=== PATIENT | male | born 1965 | race Caucasian/White ===

== ENCOUNTER 2017-06-05 13:28 | Inpatient (IN) | payer MEDICARE, OTHER ==
[~2017-06-05] VITALS: Ht 162.6 cm; Wt 76.7 kg
[2017-06-05] MEDS ORDERED: IV NORMAL SALINE 1,000ML 1,000 ML IV SCH (13:56)
[2017-06-05 14:12] LABS: BASO # 0.1 x10^3/uL (0.0-0.2); BASO % 1 % (0-3); EOS % 0 % (0-3); HEMOGLOBIN 16.9 g/dL (13.0-17.5); LYMPH # 0.8 x10^3/uL (1.0-4.8); LYMPH % 8 % (24-48); MEAN CORPUSCULAR HEMOGLOBIN 33 pg (25-35); MEAN CORPUSCULAR HGB CONC 34 g/dL (31-37); MEAN CORPUSCULAR VOLUME 97 fL (79-100); MONO # 0.8 x10^3/uL (0.0-1.1); MONO % 8 % (0-9); NEUT # 8.4 x10^3uL (1.8-7.7); NEUT % 83 % (31-73); PLATELET COUNT 206 x10^3/uL (140-400); RED BLOOD COUNT 5.13 x10^6/uL (4.30-5.70); RED CELL DISTRIBUTION WIDTH 14.4 % (11.5-14.5); WHITE BLOOD COUNT 10.1 x10^3/uL (4.0-11.0)
[2017-06-05] MEDS ORDERED: IV NORMAL SALINE 50ML 50 ML ONE (14:12)
[2017-06-05] MEDS ORDERED: cefTRIAXone SODIUM 1 GM VIAL IV ONE (14:13)
[2017-06-05] MEDS ORDERED: ACETAMINOPHEN 500 MG TABLET PO ONE (14:15)
[2017-06-05] MEDS ORDERED: ONDANSETRON ODT 4 MG TAB.RAPDIS PO ONE (14:15)
[2017-06-05 14:34] LABS: BILIRUBIN,URINE NEG (NEG); CLARITY,URINE HAZY; COLOR,URINE AMBER; GLUCOSE,URINE NEG (NEG); NITRITE,URINE NEG (NEG); RBC,URINE RARE /HPF (0-2); UROBILINOGEN,URINE 1 mg/dL (0.2 mg/dL)
[2017-06-05 14:35] LABS: AMORPHOUS SEDIMENT,UR PRESENT /HPF; BACTERIA,URINE FEW /HPF (0-FEW); HYALINE CASTS, URINE FEW /HPF; SQUAMOUS EPITHELIAL CELL,UR OCC /LPF; WBC,URINE OCC /HPF (0-4)
[2017-06-05 14:43] LABS: BARBITURATES NEG (NEG); BENZODIAZEPINES NEG (NEG); CANNABINOIDS NEG (NEG); COCAINE POS (NEG); METHADONE NEG (NEG); OPIATES NEG (NEG); PHENCYCLIDINE NEG (NEG)
[2017-06-05 14:44] LABS: AMPHETAMINE/METHAMPHETAMINE NEG (NEG)
[2017-06-05 14:44] LABS: ALBUMIN 4.2 g/dL (3.4-5.0); CALCIUM 9.5 mg/dL (8.5-10.1); CREATININE 1.4 mg/dL (0.7-1.3); DIRECT BILIRUBIN 0.5 mg/dL (0.0-0.2); GFR 53.2; POTASSIUM 3.3 mmol/L (3.5-5.1); TOTAL BILIRUBIN 1.4 mg/dL (0.2-1.0); TOTAL PROTEIN 8.5 g/dL (6.4-8.2)
--- NOTE | 2017-06-05 14:51 | EKG ---
[address] [address] Test Date: 2017-06-05 Test Time: 14:33:48 Pat Name: BHUMIKA MENDOZA Department: Room: Gender: M Ramp Supervisor: FARNAZ : 1965 Requested By: MARIELLE DEAN Order Number: [id number] Reading MD: Pete Aguilar Measurements Intervals [place] Rate: 105 P: 82 ME: 160 QRS: 35 QRSD: 90 T: 35 QT: 326 QTc: 435 Interpretive Statements SINUS TACHYCARDIA VENTRICULAR PREMATURE COMPLEX(ES) Electronically Signed On 06-08-2017 8:22:14 CDT by Pete Aguilar
--- NOTE | 2017-06-05 15:06 | RAD ---
CT HEAD WITHOUT CONTRAST History: seizure, fall, head injury . Comparison: None. Procedure: Axial images are obtained of the head from the skull base through the vertex without IV contrast. 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 Vidal-white matter differentiation is otherwise preserved. The ventricles and sulci are normal for the patient's age.. No mass-effect, midline shift, hemorrhage or obvious acute infarction is identified. Basilar cisterns are patent. Bone windows demonstrate no significant calvarial abnormality.The visualized paranasal sinuses appear clear. Mastoid air cells are well aerated. IMPRESSION: 1. No acute intracranial abnormality. 2. 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 PQRS Compliance Statement: One or more of the following individualized dose reduction techniques were utilized for this examination: 1. Automated exposure control 2. Adjustment of the mA and/or kV according to patient size 3. Use of iterative reconstruction technique
--- NOTE | 2017-06-05 15:20 | RAD ---
CT MAXILLOFACIAL WITHOUT CONTRAST History: seizure, fall, head injury Technique: Axial helical images of the face were obtained without contrast. Axial and coronal reconstruction was performed. Findings: Minimally depressed fracture of the left anterior maxillary sinus. Trace bilateral maxillary sinus mucosal thickening. The paranasal sinuses are otherwise clear. The orbits are normal. The globes are intact. The nasal septum is mostly midline. The ostiomeatal complexes are narrow but patent. Right maxillary molar periapical lucencies. Multiple dental caries. IMPRESSION: 1. Minimally depressed fracture of the left anterior maxillary sinus. Given the presence of left frontal lobe encephalomalacia, findings could relate to remote injury. Recommend clinical correlation for patient's history and point tenderness in this region. 2. Right maxillary molar periapical lucencies. Multiple dental caries. Critical Findings: These findings were discussed with Dr. Isidro at 2:15 PM on 06/05/2017. Dr. Isidro advised that patient does have point tenderness in this region. PQRS Compliance Statement: One or more of the following individualized dose reduction techniques were utilized for this examination: 1. Automated exposure control 2. Adjustment of the mA and/or kV according to patient size 3. Use of iterative reconstruction technique
--- NOTE | 2017-06-05 16:06 | PHYS DOC ---
General Chief Complaint: SEIZURE Stated Complaint: SEIZURE Time Seen by MD: 13:56 Source: patient Exam Limitations: other (patient deaf and mute, noncooperative ) Problems: History of Present Illness Initial Comments Patient is a 51-year-old male who was reportedly deaf brought to the ED by EMS with report of seizure and head injury. EMS reports that the patient who is homeless was called in as having had a seizure by an acquaintance. EMS reports that on arrival the patient was tachycardic but otherwise vital signs were stable. The patient was able to follow visual commands and they did not feel that he appeared to be postictal. They reported some left facial swelling and abrasions otherwise no trauma noted but due to questionable history a c-collar was placed in the field. On arrival a white powdery substance was noted that the patient's right nare. A test fixture designer was implemented via face time technology to obtain a history from the patient as no prior records were available. Upon questioning the patient answered affirmatively that he had had a seizure. Through the interview it became clear that the patient was alert and answering questions appropriately according to the group controller. The patient denies any global headache, no chest pain or trouble breathing no nausea or new focal neuro deficit. The patient denied any medical history aside from seizure disorder and admitted to marijuana and frequent heavy alcohol abuse. He denied any history of alcohol withdrawal or seizure related to alcohol withdrawal. He denied any neck pain ear or nose discharge and via direct questioning denied any history of assault. He specifically didn't deny through questioning history of cocaine, methamphetamine, heroin, or crack cocaine abuse. Denies history of IV drug use, immunocompromise status, or chronic hepatitis/HIV. When asked whether he took any medications for seizures or any medications for anticoagulation the patient appeared to become evasive stating "I don't know." When asked if he took any chronic medications, where he got them filled, where he lived, or if he had been seen by a local doctors for hospitals he continued to look down and avoided eye contact and via sign language state "I don't know. " Patient was able to ask via group controller for pain medications repeatedly, denying headache but stating that his left cheek was painful and he wanted us to know he had bitten his tongue. Evaluation of his tongue did show small bite heard but no open laceration or bleeding. I asked the patient is having other questions or if he had anything wanted to tell me, his only specific request was for analgesia. I advised him that we would treat his pain as best we could while keeping him awake until we found out more information about him. Due to lack of history and apparent cooperation and full labs and imaging workup was initiated. While the workup was pending ED staff called local hospitals to see if they had taking care of the patient in the past. After several facilities denies prior knowledge of the patient [facility] advised that the patient was a frequent ED patient at their facility for pain complaints and alcohol intoxication. They relate that the patient had extensive history of drug abuse specifically cocaine. They advised that the patient had an apparent fall from standing in 2015 with subarachnoid hemorrhage and has had seizure disorder resulted from the head trauma since that time. They relay that the patient takes no chronic medications, specifically no antiepileptic medications or anticoagulation therapy. Full patient medical records were requested both verbally and officially via our ED staff. Past medical history obtained from [facility] verbal report entered into this medical record below. Occurred: just prior to arrival Severity: severe Injuries/Pain Location: head, face Context: unknown Loss of Consciousness: unsure Modifying Factors: improves with other Associated Symptoms: other Allergies: Coded Allergies: Unable to Assess (Unverified , 08/07/16) Past Medical History Medical History: other (chronic knee pain, polysubstance abuse, COPD, syncope, GERD, deaf and mute, subarachnoid hemorrhage 2015 with seizure disorder sequela , hypertension, femur fracture) Surgical History: other (no surgical history reported awaiting [facility] medical records) Social History Smoker: cigarettes Alcohol: heavy Drugs: cocaine, marijuana, other (prescription pain medications) Review of Systems All Other Systems: Reviewed and Negative (accurate review of systems unobtainable see history of present illness) Physical Exam General Appearance: no apparent distress (c-collar placed,) Head: other (left malar and supraorbital swelling with soft tissue and bony tenderness, negative Wick sign negative raccoon eyes no scalp tenderness swelling or palpable bony deformity.) Eyes: bilateral eye normal inspection (pinpoint initially, repeated evaluations with normalization of appearance pupils reactive and accommodative no asymmetry), bilateral eye PERRL, bilateral eye EOMI, bilateral eye other Ears, Nose, Mouth, Throat: no dental injury (no intraoral or intranasal bleeding or dried blood noted), other (no ear or nose discharge no fluid behind TMs bilaterally, minor left sided tongue bite wound no lacerations or bleeding, left malar and maxillary tenderness no palpable bony deformity, hard palate appears to be atraumatic and the airway is clear and patent) Neck: other (after C-collar removed neck is supple no bony or soft tissue tenderness no palpable bony step-off or deformity) Cardiovascular/Respiratory: tachycardia (tachycardic initially with a faint diffuse wheeze bilaterally good air movement no respiratory distress. Rate normalization through repeated exam during ED course) Gastrointestinal: normal bowel sounds, non tender, soft (nondistended no masses palpated) Back: normal inspection, no CVA tenderness, no vertebral tenderness Extremities: no evidence of injury, normal range of motion, non-tender, no pedal edema, pelvis stable Neurologic/Psychiatric: tire wrapper II-XII nml as tested, no motor/sensory deficits, alert, oriented x 3, other (patient does not appear to be postictal answers all questions appropriately but evasive/uncooperative with any discussion of his past history or current living arrangements.) Skin: warm/dry (history superficial linear "scratch francesca abrasions" at the patient's left malar consistent with self-inflicted or other individual fingernail scratch heard, wounds are superficial and clean no bleeding or foreign bodies or contused tissue) [place] Coma Score Best Eye Response: (4) open spontaneously Best Verbal Response: (5) oriented Best Motor Response: (6) obeys commands Miguel Total: 15 (As best could determine via the communications available.) Orders, Labs, Meds EKG: Sinus tachycardia 105 bpm, PVC, nonspecific ST-T changes no STEMI changes. Interpreted by Dr. Dean. PATIENT: BHUMIKA MENDOZA ACCOUNT: [id number] : 1965 LOCATION: ER AGE: 51 SEX: M EXAM STATUS: REG ER ORD. PHYSICIAN: MARIELLE DEAN DO REASON: seizure, fall, head injury PROCEDURE: CT HEAD WO CONTRAST CT HEAD WITHOUT CONTRAST History: seizure, fall, head injury . Comparison: None. Procedure: Axial images are obtained of the head from the skull base through the vertex without IV contrast. 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 Vidal-white matter differentiation is otherwise preserved. The ventricles and sulci are normal for the patient's age.. No mass-effect, midline shift, hemorrhage or obvious acute infarction is identified. Basilar cisterns are patent. Bone windows demonstrate no significant calvarial abnormality.The visualized paranasal sinuses appear clear. Mastoid air cells are well aerated. IMPRESSION: 1. No acute intracranial abnormality. 2. 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 PATIENT: BHUMIKA MENDOZA ACCOUNT: [id number] : 1965 LOCATION: ER AGE: 51 SEX: M EXAM STATUS: REG ER ORD. PHYSICIAN: MARIELLE DEAN DO REASON: seizure, fall, head injury PROCEDURE: CT MAXILLOFACIAL WO CONTRAST CT MAXILLOFACIAL WITHOUT CONTRAST History: seizure, fall, head injury Technique: Axial helical images of the face were obtained without contrast. Axial and coronal reconstruction was performed. Findings: Minimally depressed fracture of the left anterior maxillary sinus. Trace bilateral maxillary sinus mucosal thickening. The paranasal sinuses are otherwise clear. The orbits are normal. The globes are intact. The nasal septum is mostly midline. The ostiomeatal complexes are narrow but patent. Right maxillary molar periapical lucencies. Multiple dental caries. IMPRESSION: 1. Minimally depressed fracture of the left anterior maxillary sinus. Given the presence of left frontal lobe encephalomalacia, findings could relate to remote injury. Recommend clinical correlation for patient's history and point tenderness in this region. 2. Right maxillary molar periapical lucencies. Multiple dental caries. Critical Findings: These findings were discussed with Dr. Dean at 2:15 PM on 06/05/2017. Dr. Dean advised that patient does have point tenderness in this region. PQRS Compliance Statement: One or more of the following individualized dose reduction techniques were utilized for this examination: 1. Automated exposure control 2. Adjustment of the mA and/or kV according to patient size 3. Use of iterative reconstruction technique DICTATED AND SIGNED BY: BILL MEJIAS MD DATE: 06/05/17 8880 CC: PCP,UNKNOWN; MARIELLE DEAN DO ~ PATIENT: BHUMIKA MENDOZA ACCOUNT: [id number] : 1965 LOCATION: ER AGE: 51 SEX: M EXAM STATUS: REG ER ORD. PHYSICIAN: MARIELLE DEAN DO REASON: fall, uncooperative, h/o cocaine/sz PROCEDURE: CT CERVICAL SPINE WO CONTRAST CT cervical spine without contrast Clinical Indication: fall, uncooperative, h/o calcaneus, seizures Comparison: None. Technique: Noncontrast helical CT of the cervical spine was performed. Axial, sagittal, and coronal reconstructions were obtained. Findings: The vertebral body height and alignment are maintained. There is no evidence of acute fracture or acute malalignment. No prevertebral soft tissue swelling is identified. Visualized soft tissues of the neck demonstrate no significant abnormalities. The visualized lung apices are clear. Sphenoid sinus air-fluid levels. Mild mucosal thickening of the visualized paranasal sinuses. IMPRESSION: No acute cervical fracture or malalignment. PQRS Compliance Statement: One or more of the following individualized dose reduction techniques were utilized for this examination: 1. Automated exposure control 2. Adjustment of the mA and/or kV according to patient size 3. Use of iterative reconstruction technique PQRS Compliance Statement: One or more of the following individualized dose reduction techniques were utilized for this examination: 1. Automated exposure control 2. Adjustment of the mA and/or kV according to patient size 3. Use of iterative reconstruction technique DICTATED AND SIGNED BY: BILL MEJIAS MD DATE: 06/05/171650 CC: PCP,UNKNOWN; MARIELLE DEAN DO ~ Pertinent labs: Creatine kinase 2105, potassium 3.3, BUN 18, creatinine 1.4, lactic acid 2.6, total bilirubin 1.4, AST 147, ALT 77, alkaline phosphatase 125 , urine drug screen positive for cocaine urinalysis positive for blood and greater than [address] receipt of CT labs and urine results the online test fixture designer was once again utilized to communication with the patient. I advised him of the possibility of facial fracture and through the discussion he denied any new or progressive symptoms. I advised him of his rhabdomyolysis status and discussed the sequela if left untreated and offered him inpatient admission for further evaluation and treatment. I advised him that this condition was likely present due to cocaine abuse and although he did not admit to substance abuse did check his head as if in agreement. Once again I extensively interviewed the patient as even at this time ED staff had still not contacted [facility] and established any kind of knowledge of the patient's past history. He continued to state via group controller "I don't know" both to me extensively and then to his nurse who also interviewed him extensively via test fixture designer after I had excuse myself to work on patient's hospitalization admission status. Although the patient was alert and oriented 3 and expressed understanding of his medical condition and agreement to stay for treatment to prevent permanent kidney damage or actual . He continued to be apparently evasive and dishonest regarding any aspect of his past medical history etc. as stated previously. After verbal receipt of [facility] medical records regarding the patient I did discuss the patient with Dr. Armstrong and after thorough discussion of his previously inadequate history and pending receipt of medical records and my assurance to him that I felt no neurosurgical intervention would be necessary he did accept the patient to ICU inpatient status. He requested alcohol withdrawal protocol and seizure precautions, continued hydration and serial labs. Impressions: Head trauma/concussion with acute versus chronic mildly depressed maxillary fracture Rhabdomyolysis Hypokalemia Renal insufficiency Elevated transaminases Positive cocaine urine drug screen Apparent breakthrough seizure Noncompliance Homeless status Departure Disposition: ADMITTED INPATIENT Condition: IMPROVED Additional Instructions: ICU inpatient admission Dr. Armstrong is accepting. MARIELLE DEAN DO Jun 05, 2017 16:06
[2017-06-05] MEDS ORDERED: IV NORMAL SALINE 1,000ML 1,000 ML IV ONE (17:00)
--- NOTE | 2017-06-05 17:00 | RAD ---
CT cervical spine without contrast Clinical Indication: fall, uncooperative, h/o calcaneus, seizures Comparison: None. Technique: Noncontrast helical CT of the cervical spine was performed. Axial, sagittal, and coronal reconstructions were obtained. Findings: The vertebral body height and alignment are maintained. There is no evidence of acute fracture or acute malalignment. No prevertebral soft tissue swelling is identified. Visualized soft tissues of the neck demonstrate no significant abnormalities. The visualized lung apices are clear. Sphenoid sinus air-fluid levels. Mild mucosal thickening of the visualized paranasal sinuses. IMPRESSION: No acute cervical fracture or malalignment. PQRS Compliance Statement: One or more of the following individualized dose reduction techniques were utilized for this examination: 1. Automated exposure control 2. Adjustment of the mA and/or kV according to patient size 3. Use of iterative reconstruction technique PQRS Compliance Statement: One or more of the following individualized dose reduction techniques were utilized for this examination: 1. Automated exposure control 2. Adjustment of the mA and/or kV according to patient size 3. Use of iterative reconstruction technique
[2017-06-05] MEDS ORDERED: POTASSIUM CHLORIDE 20 MEQ/15 ML ORAL LIQUID. PO ONE (18:45)
[2017-06-05 19:49] VITALS: BP 154/89
[2017-06-05] MEDS ORDERED: diphenhydrAMINE 50 MG/ML VIAL IVP PRN (20:30)
[2017-06-05] MEDS ORDERED: HALOPERIDOL LACT 5 MG/ML VIAL. IM PRN (20:30)
[2017-06-05] MEDS ORDERED: chlordiazePOXIDE HCL 25 MG CAPSULE PO PRN (20:30)
[2017-06-05] MEDS ORDERED: LORazepam 1 MG TABLET PO PRN (20:30)
[2017-06-05] MEDS ORDERED: LORazepam 2 MG/ML VIAL IV PRN (20:30)
[2017-06-05 21:02] VITALS: BP 147/88
[2017-06-05 22:02] VITALS: BP 143/82
[2017-06-05 23:12] VITALS: BP 149/84
[2017-06-06] VITALS (12 sets, daily range): BP systolic 118–152; BP diastolic 73–99
[2017-06-06] MEDS ORDERED: ALBUTEROL SULFATE 2.5 MG/3 ML NEBU. NEB PRN
[2017-06-06 05:28] LABS: BASO % 1 % (0-3); EOS # 0.2 x10^3/uL (0.0-0.7); EOS % 3 % (0-3); HEMATOCRIT 41.9 % (39.0-53.0); HEMOGLOBIN 14.2 g/dL (13.0-17.5); LYMPH # 1.4 x10^3/uL (1.0-4.8); LYMPH % 24 % (24-48); MEAN CORPUSCULAR HEMOGLOBIN 33 pg (25-35); MEAN CORPUSCULAR HGB CONC 34 g/dL (31-37); MEAN CORPUSCULAR VOLUME 97 fL (79-100); MONO # 0.5 x10^3/uL (0.0-1.1); MONO % 9 % (0-9); NEUT # 3.9 x10^3uL (1.8-7.7); NEUT % 64 % (31-73); PLATELET COUNT 146 x10^3/uL (140-400); RED CELL DISTRIBUTION WIDTH 14.2 % (11.5-14.5); WHITE BLOOD COUNT 6.1 x10^3/uL (4.0-11.0)
--- NOTE | 2017-06-06 05:32 | RAD ---
EXAM: CT head without contrast HISTORY: Unequal pupils, seizure a few days ago w trauma to head/face COMPARISON: None available TECHNIQUE: Computed tomographic images of the head were obtained without contrast. RS compliance statement: One or more of the following individualized dose reduction techniques were utilized for this examination: 1. Automated exposure control 2. Adjustment of the mA and/or kV according to patient size 3. Use of iterative reconstruction technique FINDINGS: There is no acute intracranial process identified. Specifically, there are no intracranial blood products, extra-axial fluid collections, mass effect or midline shift. Ventricles and basilar cisterns are maintained. The visualized portions of the orbits, paranasal sinuses and mastoid air cells are unremarkable. No suspicious calvarial lesion is seen. IMPRESSION: No acute intracranial findings. Electronically signed by: Kelley Lora MD (06/06/2017 5:28 AM) [id number]
[2017-06-06 05:38] LABS: CREATININE 0.9 mg/dL (0.7-1.3); GFR 88.6; MAGNESIUM 1.7 mg/dL (1.8-2.4); POTASSIUM 3.4 mmol/L (3.5-5.1); TOTAL BILIRUBIN 1.2 mg/dL (0.2-1.0)
[2017-06-06] MEDS ORDERED: POTASSIUM CHLORIDE 20 MEQ TABLET.ER. PO ONE (08:00)
[2017-06-06] MEDS: IV NORMAL SALINE 1,000ML 1,000 ML IV SCH ×2 (08:30→20:00)
[2017-06-06] MEDS ORDERED: FLU VACC QS2017-18 (36MOS+)/PF 0.5 ML SYRINGE. VAX IM ONE (12:00)
--- NOTE | 2017-06-06 15:12 | HP ---
ADMIT DATE: 06/06/2017 HISTORY OF PRESENT ILLNESS: This is a 51-year-old male who is deaf and mute who was brought to the Emergency Room by EMS with a report of seizure and head injury. Subsequent workup revealed it was positive for cocaine and appeared to have rhabdomyolysis. Also in the Emergency Room, he reported some left facial pain and some abrasions though the ER staff also noted white powdery substance in his right naris. The history was done in the Emergency Room with a signal processing engineer. The staff here has been writing out things and he does read lips fairly well. PAST MEDICAL HISTORY: Chronic knee pain, polysubstance abuse, COPD, GERD, deaf and mute, subarachnoid hemorrhage in 2015 with seizure disorder, hypertension, femur fracture. PAST SURGICAL HISTORY: Unknown. SOCIAL HISTORY: Smokes 2 packs a day. Alcohol use he says is heavy. Drug use, cocaine, marijuana and prescription pain medications when he can get them. MEDICATIONS: Regular medications. HOME MEDICATIONS: None. REVIEW OF SYSTEMS: At this time, he is not complaining of pain and not requesting pain medication. OBJECTIVE: VITAL SIGNS: Blood pressure is 152/88, pulse 85, respirations 24, pulse ox is 98% on room air. His temperature is 98.6. HEENT: TMs are intact bilaterally. His eyes were clear. His nose was patent. His throat was clear. He has a series of scrapes on his face on the left that are not infected. NECK: Supple without adenopathy. LUNGS: With few wheezes. CARDIOVASCULAR: Regular rhythm and rate. ABDOMEN: Soft, nontender. EXTREMITIES: Without edema. NEUROLOGIC: He is intact. He was also seen by Dr. Ghosh. LABORATORY DATA: This morning, his potassium is 3.4, magnesium 1.7, total bilirubin was 1.2. His CK was 2046 down from 2248. He had markedly elevated liver function tests, which have improved somewhat today. His initial CK was 2105 and then 2248. Toxicology drug screen positive for cocaine. Alcohol negative. Urine, very concentrated with specific gravity greater than 1.030 and proteinuria and ketones with large amount of blood without red blood cells. ASSESSMENT: 1. Rhabdomyolysis, status post seizure. 2. Superficial lacerations on the face. 3. Dehydration with proteinuria and ketonuria. 4. Hypertension. 5. Deaf and mute. 6. Polysubstance abuse. 7. Seizure secondary to cocaine. PLAN: IV fluids. He has been seen by the neurologist who recommends an EEG either as an inpatient or an outpatient. We will recheck his labs in the morning. ROSANA POSEY DO DR: JOCY/vick JOB#: [id number] / [id number]
[2017-06-07 00:15] VITALS: BP 138/95
[2017-06-07] MEDS: IV NORMAL SALINE 1,000ML 1,000 ML IV SCH ×3 (02:40→10:06)
[2017-06-07 04:00] VITALS: BP 140/79
[2017-06-07 04:08] VITALS: BP 143/93
[2017-06-07 04:09] VITALS: BP 143/93
--- NOTE | 2017-06-07 06:09 | CONS ---
DATE OF CONSULTATION: NEUROLOGIC CONSULTATION REFERRING PHYSICIAN: Dr. Ingram. REASON FOR CONSULTATION: Breakthrough seizure. HISTORY OF PRESENT ILLNESS: This is a 51-year-old -[place] male who was brought to the Emergency Room by the EMS with chief complaints of seizure-like activities. The patient is mute and deaf and unable to provide any further information, but he is able to read lips well. In the Emergency Room, he was found to be a substance abuser. His urine drug screen test revealed evidence of cocaine. It was reported that the patient was found to have powdery material in his right naris. Since admission, the patient has not had any seizure and he has not been on anticonvulsants. PAST MEDICAL HISTORY: Significant for head injury and possible subarachnoid hemorrhage in 2015 resulted in a seizure, polysubstance abuse, hypertension, COPD, GERD and chronic pain of the knees. PAST SURGICAL HISTORY: Significant for left total knee replacement. SOCIAL HISTORY: It was reported that the patient smokes 2 packs of cigarettes daily and he is a heavy alcohol user. He admitted to substance abuse, substances abused include cocaine, marijuana and narcotics. CURRENT MEDICATIONS: Includes Albuterol inhaler, Librium, Benadryl, Haldol 5 mg IM q. 4 hours p.r.n. for agitation, lorazepam 2 mg given ____ p.r.n. intravenously, Librium 100 mg included CIWA protocol. ALLERGIES: No known drug allergies. PHYSICAL EXAMINATION: GENERAL: Well-developed, well-nourished -[place] male, not in acute distress. VITAL SIGNS: Blood pressure 126/77, respiratory rate 20, pulse 89, temperature 98.6, oxygen saturation 91% on room air. HEENT: Normocephalic, atraumatic, otherwise unremarkable. NECK: Supple. Negative for carotid bruit, lymphadenopathy, JVD or thyromegaly. LUNGS: Clear to A and P. CARDIOVASCULAR: Regular rate and rhythm, normal S1, S2. ABDOMEN: Soft. Bowel sounds positive. EXTREMITIES: Negative for cyanosis, clubbing or pitting edema. NEUROLOGIC: MENTAL STATUS: The patient is alert, follows commands. He is mute and deaf, but he reads the lips well. Further evaluation of his mental status is limited: CRANIAL NERVES: Visual pineda appeared to be intact. The pupils are reactive to light and accommodation. Extraocular movements are intact. There is no nystagmus. There is no facial motor or sensory deficit. Hearing, the patient is deaf. The palate is elevated symmetrically. Sternocleidomastoid muscles are powerful bilaterally. The patient shrugs his shoulders symmetrically and protrudes his tongue in the midline without fasciculation or atrophy. MOTOR EXAMINATION: No focal muscle bulk was seen. The tone is normal. The strength is 4/5 throughout. Sensory examination revealed normal pinprick, light touch senses throughout. Deep tendon reflexes are symmetric and active without pathologic responses. Gait not tested. LABORATORY DATA: CBC revealed white cells of 6,100, hemoglobin 14.2, hematocrit 41.9, platelet count 146,000. Chemistry revealed sodium of 141, potassium 3.4, chloride 107, CO2 of 26, BUN 15, creatinine 0.9, glucose 84. Liver enzymes showed elevated AST and CK is markedly elevated at 2046. Troponin level is normal, less than 0.017. Urinalysis is negative for urinary tract infections, and urine drug screen is positive for cocaine, nasal screen MRSA PCR is negative. 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 Cervical spine CT scan revealed no acute cervical fracture or malalignment. Maxillofacial CT scan without contrast revealed a minimally depressed fracture of the left anterior maxillary sinus, probably related to previous injury. IMPRESSION: 1. Possible breakthrough seizure. Cocaine abuse may have contributed to the current symptoms. 2. History of polysubstance abuse. 3. Multiple medical problems includes COPD, GERD, deafness, hypertension, history of seizure. RECOMMENDATIONS: 1. EEG. 2. Drug rehabilitation. 3. Continue with current management initiated by Dr. Ingram. 4. Should the patient have weakness witnessed seizure activities, we will start him on anticonvulsant. M Giselle REDMOND MD DR: MARGARITA/vick JOB#: [id number] / [id number]
[2017-06-07 06:33] LABS: BASO # 0.1 x10^3/uL (0.0-0.2); BASO % 1 % (0-3); EOS # 0.2 x10^3/uL (0.0-0.7); EOS % 6 % (0-3); HEMATOCRIT 41.8 % (39.0-53.0); HEMOGLOBIN 14.3 g/dL (13.0-17.5); LYMPH # 1.3 x10^3/uL (1.0-4.8); LYMPH % 34 % (24-48); MEAN CORPUSCULAR HEMOGLOBIN 33 pg (25-35); MEAN CORPUSCULAR HGB CONC 34 g/dL (31-37); MEAN CORPUSCULAR VOLUME 98 fL (79-100); MONO # 0.4 x10^3/uL (0.0-1.1); MONO % 11 % (0-9); NEUT # 1.9 x10^3uL (1.8-7.7); NEUT % 48 % (31-73); PLATELET COUNT 131 x10^3/uL (140-400); RED BLOOD COUNT 4.28 x10^6/uL (4.30-5.70); WHITE BLOOD COUNT 3.9 x10^3/uL (4.0-11.0)
[2017-06-07 06:47] LABS: ALBUMIN 2.7 g/dL (3.4-5.0); CREATININE 0.8 mg/dL (0.7-1.3); GFR 101.5; MAGNESIUM 1.4 mg/dL (1.8-2.4); POTASSIUM 3.5 mmol/L (3.5-5.1); TOTAL BILIRUBIN 0.7 mg/dL (0.2-1.0); TOTAL PROTEIN 5.5 g/dL (6.4-8.2)
[2017-06-07] MEDS ORDERED: MAGNESIUM SULFATE 2GM 50 ML IV ONE (07:20)
[2017-06-07 08:35] VITALS: BP 140/79
[2017-06-07] MEDS ORDERED: FLU VACC QS2017-18 (36MOS+)/PF 0.5 ML SYRINGE. VAX IM ONE (12:15)
[2017-06-07 12:54] VITALS: BP 140/93
--- NOTE | 2017-06-07 22:57 | DS ---
DATE OF DISCHARGE: 06/07/2017 DISCHARGE DIAGNOSES: 1. Rhabdomyolysis, much improved. 2. Superficial lacerations on the left side of his face. 3. Dehydration with proteinuria and ketonuria, resolved. 4. Hypertension. 5. Cocaine-induced seizure. 6. Deaf and mute. 7. Polysubstance abuse. 8. Hypomagnesemia. HOSPITAL COURSE: This 51-year-old male who sustained a seizure after cocaine abuse with some superficial lacerations of his face, also mild rhabdomyolysis. He received IV fluids. He received flu shot, did not exhibit any withdrawal-type symptoms and he was discharged in good condition on 06/07. Communication was done writing this down. I encouraged him to give up the cocaine and other substances. He will be discharged to a homeless longterm. ROSANA POSEY DO DR: JOCY/vick JOB#: [id number] / [id number]
--- NOTE | 2017-06-07 23:31 | PN ---
DATE: 06/07/2017 SUBJECTIVE: The patient has not had any recurrent seizures since admission. He denies any new medical or neurological complaints. OBJECTIVE: GENERAL: Well developed, well nourished -[place] male, not in acute distress. VITAL SIGNS: Blood pressure 140/79, respiratory rate 18, pulse is 82 and regular, temperature 98.2, oxygen saturation 95% on room air. HEENT: Normocephalic, atraumatic, otherwise unremarkable. NECK: Supple. Negative for carotid bruit, lymphadenopathy or thyromegaly. LUNGS: Clear to A and P. CARDIOVASCULAR: Regular rate and rhythm, normal S1, S2. There is no S3, S4 or murmur. ABDOMEN: Soft. Bowel sounds positive. EXTREMITIES: Negative for cyanosis, clubbing or pitting edema. NEUROLOGICAL: Mental Status: The patient is alert and oriented x2. The patient is mute and deaf, otherwise unremarkable. Motor examination: No focal muscle bulk was seen. The tone is normal. The strength is 5/5 throughout. Sensory examination revealed normal pinprick, light touch, vibratory and position senses. Deep tendon reflexes are symmetric and active without pathologic responses. Gait not tested. LABORATORY DATA: CBC revealed white blood cells of 3.9, hemoglobin 14.3, hematocrit 41.8, platelet count 131,000. Chemistry revealed sodium of 139, potassium 3.5, chloride 105, CO2 28, BUN 7, creatinine 0.8 and glucose is 97. CPK is down to 803. Troponin level less than 0.017. IMPRESSION: Breakthrough seizure, probably due to underlying polysubstance abuse --cocaine. Multiple medical problems include chronic obstructive pulmonary disease, gastroesophageal reflux disease, deafness. 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 Elevated CPK, likely due to rhabdomyolysis. RECOMMENDATIONS: 1. Continue with current management initiated by Dr. Ingram. 2. We will arrange for EEG on an outpatient basis. The patient is neurologically stable. M Giselle REDMOND MD DR: MARGARITA/vick JOB#: [id number] / [id number]
== END 2017-06-07 14:04 | disposition home or self-care (01) | DRG 557 ==
LOC: ER 13:28 → ICU 18:20
PROVIDERS: ADMIT Internal Medicine; ATTEND Internal Medicine
DX: M62.82 Rhabdomyolysis (principal); N17.0 Acute kidney failure with tubular necrosis; E83.42 Hypomagnesemia; G40.909 Epilepsy, unspecified, not intractable, without status epilepticus; S01.81XA Laceration without foreign body of other part of head, initial encounter; R80.9 Proteinuria, unspecified; R82.4 Acetonuria; F14.10 Cocaine abuse, uncomplicated; H91.3 Deaf nonspeaking, not elsewhere classified; E86.0 Dehydration; F17.210 Nicotine dependence, cigarettes, uncomplicated; I10 Essential (primary) hypertension; J44.9 Chronic obstructive pulmonary disease, unspecified; X58.XXXA Exposure to other specified factors, initial encounter; Z96.652 Presence of left artificial knee joint; E87.6 Hypokalemia; F12.10 Cannabis abuse, uncomplicated; N28.9 Disorder of kidney and ureter, unspecified; R74.0 Nonspecific elevation of levels of transaminase and lactic acid dehydrogenase [LDH]; F11.10 Opioid abuse, uncomplicated; G89.29 Other chronic pain; K21.9 Gastro-esophageal reflux disease without esophagitis; R74.8 Abnormal levels of other serum enzymes; F19.10 Other psychoactive substance abuse, uncomplicated; Y99.8 Other external cause status; Y92.89 Other specified places as the place of occurrence of the external cause; Y93.89 Activity, other specified; Z87.81 Personal history of (healed) traumatic fracture; Z87.820 Personal history of traumatic brain injury; Z91.19 Patient's noncompliance with other medical treatment and regimen; Z59.0 Homelessness
CPT/HCPCS: 36415; 70450; 70486; 72125; 80048; 80053; 80076; 80307; 81001; 82550; 82553; 83605; 83735; 83880; 84484; 85025; 87641; 90686; 93005; 96361; 96365; G0480; J0696; J2060; J3010; J3475; Q0162; 99285-25; G0479; J7030

== ENCOUNTER 2018-04-28 09:40 | Emergency (ER) | payer MEDICARE, OTHER ==
[~2018-04-28] VITALS: Ht 172.7 cm; Wt 63.5 kg
--- NOTE | 2018-04-28 09:57 | EKG ---
[address] [address] Test Date: 2018-04-28 Test Time: 09:46:59 Pat Name: BHUMIKA MENDOZA Department: Room: Gender: M [employer] C[employer] Developer: : 1965 Requested By: PO RAVI Order Number: [id number] Reading MD: Cheng Arguelles Measurements Intervals [place] Rate: 76 P: 66 LA: 172 QRS: 40 QRSD: 90 T: 44 QT: 364 QTc: 414 Interpretive Statements SINUS RHYTHM LEFT ATRIAL ABNORMALITY LOW LIMB LEAD VOLTAGE ABNORMAL ECG Electronically Signed On 05-02-2018 10:48:18 CDT by Cheng Arguelles
[2018-04-28 10:15] LABS: BASO # 0.1 x10^3/uL (0.0-0.2); BASO % 2 % (0-3); EOS # 0.3 x10^3/uL (0.0-0.7); EOS % 6 % (0-3); HEMATOCRIT 49.5 % (39.0-53.0); HEMOGLOBIN 16.8 g/dL (13.0-17.5); LYMPH # 1.4 x10^3/uL (1.0-4.8); LYMPH % 25 % (24-48); MEAN CORPUSCULAR HEMOGLOBIN 31 pg (25-35); MEAN CORPUSCULAR HGB CONC 34 g/dL (31-37); MEAN CORPUSCULAR VOLUME 92 fL (79-100); MONO # 0.4 x10^3/uL (0.0-1.1); MONO % 6 % (0-9); NEUT # 3.4 x10^3uL (1.8-7.7); NEUT % 61 % (31-73); PLATELET COUNT 258 x10^3/uL (140-400); RED BLOOD COUNT 5.36 x10^6/uL (4.30-5.70); RED CELL DISTRIBUTION WIDTH 13.8 % (11.5-14.5); WHITE BLOOD COUNT 5.6 x10^3/uL (4.0-11.0)
[2018-04-28] MEDS: NITROGLYCERIN SUBLINGUAL 0.4 MG BOTTLE OF 25. SL PRN ×3 (10:18→10:39)
[2018-04-28] MEDS ORDERED: ASPIRIN 81 MG TAB.CHEW PO ONE (10:20)
--- NOTE | 2018-04-28 10:32 | PHYS DOC ---
Past History Past Medical History: COPD, GERD, Hypertension, Other Past Surgical History: Other Smoking: Cigarettes Alcohol Use: Heavy Drug Use: Cocaine, Marijuana Adult General Chief Complaint Chief Complaint: CHEST PAIN [facility] HPI Patient is a 52 year old deaf male who brought in by EMS because of chest pain. EMS reported that patient was not labored and complaining of chest pain and was able to communicate with writing but answering "I don't know" about most of the questions. A engineering project designer was implanted via face time technology to obtain history from the patient. Patient states his pain was started yesterday as a constant and crushing pain without radiation. Patient complaining of dizziness and palpitation and denies shortness of breath and nausea. Patient rated his pain 10 over 10 and states he took 324 mg of aspirin this morning. Regarding past medical history patient answers 'I don't know' about most of the questions. According to EMR patient had another emergency room visits and hospitalization on 06/05/2017 with history of cocaine and alcohol abuse. Patient admitted to use crack cocaine frequently and drink alcohol heavily. Review of Systems Review of Systems Constitutional: Denies fever or chills [] Eyes: Denies change in visual acuity, redness, or eye pain [] HENT: Denies nasal congestion or sore throat [] Respiratory: Denies cough, reports shortness of breath [] Cardiovascular: No additional information not addressed in HPI [] GI: Denies abdominal pain, nausea, vomiting, bloody stools or diarrhea [] : Denies dysuria or hematuria [] Musculoskeletal: Denies back pain or joint pain [] Integument: Denies rash or skin lesions [] Neurologic: Denies headache, focal weakness or sensory changes [] Endocrine: Denies polyuria or polydipsia [] All other systems were reviewed and found to be within normal limits, except as documented in this note. Current Medications Current Medications Current Medications Medications (Trade) Dose Ordered Sig/Dio Start Time Stop Time Status Last Admin Dose Admin Aspirin (Children'S Aspirin) 324 mg 1X ONCE 04/28/18 10:20 04/28/18 10:21 Nitroglycerin (Nitrostat) 0.4 mg PRN Q5MIN PRN 04/28/18 09:45 04/29/18 09:44 Allergies Allergies Allergies Coded Allergies Type Severity Reaction Last Updated Verified No Known Drug Allergies 10/29/17 No Physical Exam Physical Exam Constitutional: Well nourished, no acute distress, non-toxic appearance, deaf. [ ] HENT: Normocephalic, atraumatic, oropharynx moist, no oral exudates, nose normal. [] Eyes: PERRLA, EOMI, conjunctiva normal, no discharge. [] Neck: Normal range of motion, no tenderness, supple, no stridor. [] Cardiovascular:Heart rate regular rhythm, no murmur [] Lungs & Thorax: Bilateral breath sounds clear to auscultation, reproducible substernal pain[] Abdomen: Bowel sounds normal, soft, no tenderness, no masses, no pulsatile masses. [] Skin: Warm, dry, no erythema, no rash. [] Back: No tenderness, no CVA tenderness. [] Extremities: No tenderness, no cyanosis, no clubbing, ROM intact, no edema. [] Neurologic: Alert and oriented X 3, normal motor function, normal sensory function, no focal deficits noted, deaf and mute [] Psychologic: Affect normal, judgement normal, mood normal. [] Current Patient Data Lab Results Laboratory Tests Test 04/28/18 09:59 White Blood Count 5.6 x10^3/uL (4.0-11.0) Red Blood Count 5.36 x10^6/uL (4.30-5.70) Hemoglobin 16.8 g/dL (13.0-17.5) Hematocrit 49.5 % (39.0-53.0) Mean Corpuscular Volume 92 fL (79-100) Mean Corpuscular Hemoglobin 31 pg (25-35) Mean Corpuscular Hemoglobin Concent 34 g/dL (31-37) Red Cell Distribution Width 13.8 % (11.5-14.5) Platelet Count 258 x10^3/uL (140-400) Neutrophils (%) (Auto) 61 % (31-73) Lymphocytes (%) (Auto) 25 % (24-48) Monocytes (%) (Auto) 6 % (0-9) Eosinophils (%) (Auto) 6 % (0-3) H Basophils (%) (Auto) 2 % (0-3) Neutrophils # (Auto) 3.4 x10^3uL (1.8-7.7) Lymphocytes # (Auto) 1.4 x10^3/uL (1.0-4.8) Monocytes # (Auto) 0.4 x10^3/uL (0.0-1.1) Eosinophils # (Auto) 0.3 x10^3/uL (0.0-0.7) Basophils # (Auto) 0.1 x10^3/uL (0.0-0.2) EKG EKG EKG interpreted by me. EKG at 0 946 showed normal sinus rhythm at rate of 76, left atrial abnormalities, low voltage QRS, no acute ST and T-wave abnormalities. Radiology/Procedures Radiology/Procedures [address] [address] IMAGING REPORT Signed PATIENT: BHUMIKA MENDOZA ACCOUNT: [id number] : 1965 LOCATION: ER AGE: 52 SEX: M EXAM STATUS: REG ER ORD. PHYSICIAN: PO RAVI MD REASON: chest pain PROCEDURE: PORTABLE CHEST 1V PORTABLE CHEST 1V History: CHEST PAIN Comparison: None. Findings: Single view of the chest is submitted. There is no infiltrate, pneumothorax, or effusion. The pericardial cardiac silhouette is within normal limits in size. There are likely old right fourth, fifth, sixth rib fractures. Impression: 1. There is no evidence of acute cardiopulmonary disease. Superior right posterior rib fractures are likely old. Electronically signed by: Fabienne Pham MD (04/28/2018 10:39 AM) [facility] DICTATED AND SIGNED BY: FABIENNE PHAM MD DATE: 04/28/18 1039 CC: PO RAVI MD; PCP,UNKNOWN ~ Course & Med Decision Making Course & Med Decision Making Pertinent Labs and Imaging studies reviewed. (See chart for details) Evaluation of patient in ER showed 52-year-old male patient brought in by EMS because of chest pain. Patient was deaf and communication was performed via face time technology. Patient intentionally answering "I don't know " about some question guarding past medical history. Patient had reproducible substernal pain. Patient had unremarkable EKG, chest x-ray, labs except for positive urine drug screen for methamphetamine and cocaine. Patient was comfortable while he was in ER and discharged with diagnosis of chest wall pain and substance abuse. Dragon Disclaimer Dragon Disclaimer This electronic medical record was generated, in whole or in part, using a voice recognition dictation system. Departure Departure: Impression: Primary Impression: Musculoskeletal chest pain Additional Impressions: Methamphetamine abuse Cocaine abuse Alcohol abuse Deaf-mutism Disposition: HOME, SELF-CARE (at 1110) Condition: STABLE Referrals: PCP,UNKNOWN (PCP) Patient Instructions: Alcohol Problems, Amphetamine Abuse-Brief, Cocaine Abuse- Brief, Musculoskeletal Pain, Smoking Cessation, Tips For Success Additional Instructions: Avoid using drug and alcohol Follow-up with your primary care physician in 3-5 days Return to ER if not getting better Scripts No Active Prescriptions or Reported Meds Problem Qualifiers PO RAVI MD Apr 28, 2018 10:32
[2018-04-28 10:35] LABS: ALBUMIN 3.4 g/dL (3.4-5.0); ALBUMIN/GLOBULIN RATIO 0.8 (1.0-1.7); CALCIUM 9.1 mg/dL (8.5-10.1); CREATININE 0.9 mg/dL (0.7-1.3); GFR 88.3; MAGNESIUM 1.8 mg/dL (1.8-2.4); POTASSIUM 4.4 mmol/L (3.5-5.1); TOTAL BILIRUBIN 0.3 mg/dL (0.2-1.0); TOTAL PROTEIN 7.5 g/dL (6.4-8.2)
[2018-04-28 10:35] LABS: AMPHETAMINE/METHAMPHETAMINE POS (NEG); BARBITURATES NEG (NEG); BENZODIAZEPINES NEG (NEG); CANNABINOIDS NEG (NEG); COCAINE POS (NEG); METHADONE NEG (NEG); OPIATES NEG (NEG); PHENCYCLIDINE NEG (NEG)
[2018-04-28 10:41] LABS: BILIRUBIN,URINE NEG (NEG); CLARITY,URINE CLEAR; COLOR,URINE AMBER; GLUCOSE,URINE NEG (NEG); UROBILINOGEN,URINE 1 mg/dL (0.2 mg/dL)
[2018-04-28 10:42] LABS: NITRITE,URINE NEG (NEG)
[2018-04-28 10:43] LABS: BACTERIA,URINE 0 /HPF (0-FEW); RBC,URINE OCC /HPF (0-2); SQUAMOUS EPITHELIAL CELL,UR OCC /LPF; WBC,URINE 0 /HPF (0-4)
--- NOTE | 2018-04-28 10:43 | RAD ---
PORTABLE CHEST 1V History: CHEST PAIN Comparison: None. Findings: Single view of the chest is submitted. There is no infiltrate, pneumothorax, or effusion. The pericardial cardiac silhouette is within normal limits in size. There are likely old right fourth, fifth, sixth rib fractures. Impression: 1. There is no evidence of acute cardiopulmonary disease. Superior right posterior rib fractures are likely old. Electronically signed by: Beni Brambila MD (04/28/2018 10:39 AM) [id number]
[2018-04-28 11:09] VITALS: BP 130/80
== END 2018-04-28 11:30 | disposition home or self-care (01) ==
LOC: ER 09:40
DX: R07.89 Other chest pain (principal); R42 Dizziness and giddiness; F15.10 Other stimulant abuse, uncomplicated; F14.10 Cocaine abuse, uncomplicated; F10.20 Alcohol dependence, uncomplicated; H91.3 Deaf nonspeaking, not elsewhere classified; J44.9 Chronic obstructive pulmonary disease, unspecified; K21.9 Gastro-esophageal reflux disease without esophagitis; I10 Essential (primary) hypertension; F17.210 Nicotine dependence, cigarettes, uncomplicated; Y90.0 Blood alcohol level of less than 20 mg/100 ml
CPT/HCPCS: 36415; 71045; 80053; 80307; 81001; 82550; 83690; 83735; 83880; 84484; 85025; 85610; 93005; 99285; G0480; G0479